=== PATIENT | male | born 1945 | race Caucasian/White ===

== ENCOUNTER 2022-07-02 18:43 | Emergency (ER) | payer MEDICARE ==
[~2022-07-02] VITALS: Wt 92.5 kg
[2022-07-02 19:39] LABS: BASO % 0.5 % (0.0-1.0); EOS # 0.2 10*3/uL (0.0-0.4); EOS % 3.1 % (1.0-4.0); HEMATOCRIT 42.5 % (42.0-52.0); LYMPH # 1.5 10*3/uL (1.3-4.4); LYMPH % 26.9 % (27.0-41.0); MEAN CELL VOLUME 90.6 fl (80.0-94.0); MEAN CORPUSCULAR HGB 30.5 pg (27.0-31.0); MEAN CORPUSCULAR HGB CONC 33.6 g/dl (33.0-37.0); MEAN PLATELET VOLUME 9.9 fl (9.6-12.3); MONO % 17.5 % (3.0-9.0); NEUT # 2.9 10*3/uL (2.3-7.9); NEUT % 51.8 % (47.0-73.0); PLATELET COUNT AUTOMATED 191 10*3/uL (130-400); RED BLOOD COUNT 4.69 10*6/uL (4.50-5.90); RED CELL DISTRI WIDTH 12.5 % (0-14.5); WHITE BLOOD COUNT 5.5 10*3/uL (4.8-10.8)
[2022-07-02 19:56] LABS: ACT PARTIAL THROMBO TIME 28.9 SECONDS (20.0-32.1); INTERNATIONAL NORM RATIO 1.1 (2.0-3.5)
[2022-07-02 20:01] LABS: ALKALINE PHOSPHATASE 67 U/L (46-116); BUN 16 mg/dl (9-23); CHLORIDE 104 mmol/L (98-107); CREATININE 1.03 mg/dL (0.70-1.30); LIPASE 87 U/L (12-53); POTASSIUM 4.3 mmol/L (3.4-5.1); SGPT/ALT 13 U/L (10-49); TOTAL PROTEIN 6.6 gm/dL (6.0-8.0)
[2022-07-02 20:25] LABS: BILIRUBIN Negative (Negative); BLOOD Negative (Negative); CLARITY Clear (Clear); COLOR Yellow (Yellow); GLUCOSE Negative (Negative); KETONE Negative (Negative); LEUKO ESTERASE Negative (Negative); NITRITE Negative (Negative); PH 7.5 (4.5-8.0); SPECIFIC GRAVITY 1.015 (1.001-1.030)
[2022-07-02 20:44] LABS: RBC 0-2 rbc/hpf (0-2); WBC 0-2 wbc/hpf (0-5)
[2022-07-03] MEDS ORDERED: LIPITOR20 MG PO (03:42)
[2022-07-03] MEDS ORDERED: LISINOPRIL5 MG PO (03:42)
[2022-07-03] MEDS ORDERED: TYLENOL EXTRA500 MG PO (03:43)
[2022-07-03] MEDS ORDERED: DULCOLAX10 M1 R (03:45)
[2022-07-03] MEDS ORDERED: FLEET ENEMA 13133 ML R (03:46)
[2022-07-03] MEDS ORDERED: TOPCARE LAXATIVE5 MG PO (03:49)
== END 2022-07-03 01:32 ==
LOC: ED 18:43
PROVIDERS: Emergency Medicine
DX: F63.81 Intermittent explosive disorder (principal); Z20.822 Contact with and (suspected) exposure to COVID-19